=== PATIENT | male | born 1985 | race Caucasian/White ===

== ENCOUNTER 2017-03-09 13:49 | Emergency (ER) | payer OTHER ==
[~2017-03-09] VITALS: Ht 180.3 cm; Wt 84.8 kg
[~2017-03-09 13:49] MED LIST: ASPIRIN81 M1 PO; NEXIUM40 MG PO
[2017-03-09 14:15] VITALS: BP 126/94
--- NOTE | 2017-03-09 16:11 | NUR ---
Patient ambulated to bed 07.
--- NOTE | 2017-03-09 16:17 | NUR ---
Dr. Chinchilla evaluating patient at bedside.
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
[2017-03-09 16:46] VITALS: BP 136/84
== END 2017-03-09 16:46 | disposition home or self-care (01) ==
LOC: MED 13:49
DX: S63.91XA Sprain of unspecified part of right wrist and hand, initial encounter (principal); K21.9 Gastro-esophageal reflux disease without esophagitis; I10 Essential (primary) hypertension; W18.30XA Fall on same level, unspecified, initial encounter; Y93.89 Activity, other specified; Y92.008 Other place in unspecified non-institutional (private) residence as the place of occurrence of the external cause; Y99.8 Other external cause status

== ENCOUNTER 2017-06-14 18:39 | Emergency (ER) | payer OTHER ==
[~2017-06-14] VITALS: Ht 180.3 cm; Wt 86.3 kg
[2017-06-14 18:58] VITALS: BP 126/74
[2017-06-14] MEDS ORDERED: LIDOCAINE 1% 500 MG/50 ML VIAL INJ ONE (19:50)
--- NOTE | 2017-06-14 20:00 | NUR ---
Patient to bed 06.
--- NOTE | 2017-06-14 20:05 | NUR ---
PATIENT PRESENTS TO ED WITH C/O PAIN ON LEFT TOE FROM INGROWN TOE NAIL PT DENIES N/V/D; SKIN IS PINK/WARM/DRY; AAOX4 WITH EVEN AND STEADY GAIT; LUNGS CLEAR BL; HR EVEN AND REGULAR; PT DENIES ANY FEVER, CP, SOB, OR COUGH AT THIS TIME; PATIENT STATES PAIN OF 8/10 AT THIS TIME; VSS; PATIENT POSITIONED FOR COMFORT; HOB ELEVATED; BEDRAILS UP X2; BED DOWN. ER MD MADE AWARE OF PT STATUS.
--- NOTE | 2017-06-14 20:10 | NUR ---
Dr. Castrejon evaluating patient at bedside.
[2017-06-14] MEDS ORDERED: NEOMYCIN/POLYMYXIN/BACITRACIN 0.9 GM/1 PKT TP ONE (20:18)
--- NOTE | 2017-06-14 20:30 | NUR ---
I&D Procedure done by Dr Castrejon . amt of bleeding noted. Pt tolerated procedure. Wound care discussed w/ patient.
[2017-06-14 20:50] VITALS: BP 126/74
--- NOTE | 2017-06-14 20:50 | NUR ---
Patient discharged with v/s stable. Written and verbal after care instructions given and explained. Patient alert, oriented and verbalized understanding of instructions. Ambulatory with steady gait. All questions addressed prior to discharge. ID band removed. Patient advised to follow up with PMD. Rx of MOTRIN/BACTRIM AND TRAMADOL given. Patient educated on indication of medication including possible reaction and side effects. Opportunity to ask questions provided and answered.
== END 2017-06-14 20:50 | disposition home or self-care (01) ==
LOC: MED 18:39
DX: L60.0 Ingrowing nail (principal); K21.9 Gastro-esophageal reflux disease without esophagitis; I10 Essential (primary) hypertension
CPT/HCPCS: 11730; 90471; 90715; 99284; J2001

== ENCOUNTER 2018-03-29 21:47 | Emergency (ER) | payer OTHER ==
[~2018-03-29] VITALS: Ht 180.3 cm; Wt 86.2 kg
[~2018-03-29 21:47] MED LIST changes: -ASPIRIN81 M1 PO; +BACL10TA4 PO; -NEXIUM40 MG PO
[2018-03-29 21:55] VITALS: BP 115/65
--- NOTE | 2018-03-29 21:59 | NUR ---
TO BED # 6 AMBULATORY ,REPORT GIVEN TO KAREN MAXWELL.
--- NOTE | 2018-03-29 22:25 | NUR ---
X RAY AT BEDSIDE
--- NOTE | 2018-03-29 22:30 | NUR ---
32Y/M BIB SELF C/O RIGHT HAND PAIN AND SWELLING SINCE YESTERDAY. SWELLING NOTED TO RIGHT HAND, NO OPEN SKIN OR REDNESS NOTED. +CMS.
[2018-03-29] MEDS ORDERED: KETOROLAC 30 MG/ML VIAL IM ONE (22:50)
[2018-03-30 00:20] VITALS: BP 124/62
== END 2018-03-30 00:20 | disposition home or self-care (01) ==
LOC: MED 21:47
DX: S63.91XA Sprain of unspecified part of right wrist and hand, initial encounter (principal); K21.9 Gastro-esophageal reflux disease without esophagitis; I10 Essential (primary) hypertension; Z79.899 Other long term (current) drug therapy; X58.XXXA Exposure to other specified factors, initial encounter; Y93.89 Activity, other specified; Y92.89 Other specified places as the place of occurrence of the external cause; Y99.8 Other external cause status
CPT/HCPCS: 29125; 73130; 96372; 99284; J1885; Q0092

== ENCOUNTER 2018-05-15 10:47 | Emergency (ER) | payer SELFPAY ==
[~2018-05-15] VITALS: Ht 180.3 cm; Wt 87.5 kg
[2018-05-15 10:53] VITALS: BP 130/70
[2018-05-15] MEDS ORDERED: LIDOCAINE 2% 1000 MG/50 ML VIAL INJ ONE (11:00)
== END 2018-05-15 12:15 | disposition home or self-care (01) ==
LOC: MED 10:47
DX: L60.0 Ingrowing nail (principal); I10 Essential (primary) hypertension; Z79.899 Other long term (current) drug therapy; K21.9 Gastro-esophageal reflux disease without esophagitis
CPT/HCPCS: 11730; 99283; J2001

== ENCOUNTER 2018-06-11 09:40 | Emergency (ER) | payer SELFPAY ==
[~2018-06-11] VITALS: Ht 180.3 cm; Wt 86.2 kg
[2018-06-11 09:49] VITALS: BP 118/66
--- NOTE | 2018-06-11 09:50 | NUR ---
PATIENT AMBULATED TO BED 12.
--- NOTE | 2018-06-11 09:51 | NUR ---
32/M BIB SELF WITH c/o left great toe ingrown nail & PAIN 8/10 X 3 DAYS. 05/15/2018 removed. pt states nail falling off again / pain. PT STATED TOOK TYLENOL AT 7AM THIS MORNING. AAOX4 WITH EVEN AND STEADY GAIT;PEDAL PULSE +. LUNGS CLEAR BL; HR EVEN AND REGULAR; PATIENT STATES PAIN OF 8/10 AT THIS TIME; VSS; PATIENT POSITIONED FOR COMFORT; HOB ELEVATED; BEDRAILS UP X2; BED DOWN. ER MD MADE AWARE OF PT STATUS.
--- NOTE | 2018-06-11 10:12 | NUR ---
Patient being evaluated by DR GARCIA at bedside.
[2018-06-11] MEDS ORDERED: LIDOCAINE 1% 50 ML ONE (10:30)
[2018-06-11] MEDS ORDERED: LIDOCAINE 1% 500 MG/50 ML VIAL INJ SCH (10:30)
[2018-06-11] MEDS ORDERED: NEOMYCIN/POLYMYXIN/BACITRACIN 0.9 GM/1 PKT TP ONE (10:40)
--- NOTE | 2018-06-11 11:04 | NUR ---
Chemo castillo in [facility] - 06/11/18 at [address] GARCIA REMOVE LEFT BIG TOE NAIL. PT TOLERATED PROCEDURE WELL.
--- NOTE | 2018-06-11 11:04 | NUR ---
DR GARCIA REMOVED LEFT BIG TOE NAIL. PT TOLERATED PROCEDURE WELL.
[2018-06-11 11:36] VITALS: BP 118/66
== END 2018-06-11 11:36 | disposition home or self-care (01) ==
LOC: MED 09:40
DX: L60.0 Ingrowing nail (principal); K21.9 Gastro-esophageal reflux disease without esophagitis; I10 Essential (primary) hypertension; Z79.899 Other long term (current) drug therapy
CPT/HCPCS: 11730; 99283; J2001